=== PATIENT | female | born 1995 | race Hispanic/Latino ===

== ENCOUNTER 2018-06-20 12:56 | Emergency (ER) | payer OTHER ==
[2018-06-20 15:06] LABS: Urine Bacteria 20-50 /HPF (<20); Urine Culture Reflex Order NOT NEEDED; Urine RBC <5 /HPF (NONE SEEN)
[2018-06-20 15:07] LABS: Urine Blood NEGATIVE (NEG); Urine Glucose NEGATIVE (NEG); Urine Protein NEGATIVE (NEG); Urine Specific Gravity 1.015 (1.005-1.030)
[2018-06-20 15:07] LABS: Absolute Lymphocytes (CBC) 1.6 K/uL (0.7-4.9); Absolute Monocytes 0.4 K/uL (0.1-1.3); Absolute Neutrophil 5.1 K/uL (1.8-8.0); Basophils % 0.3 % (0-1.3); Eosinophils % 2.6 % (0-4.4); Hematocrit 39.7 % (36.0-45.0); Lymphocytes % 21.9 % (15.3-44.8); MCH 28.8 pg (27.0-35.0); MCV 87.2 fL (80-100); MPV 10.1 fL (7.6-11.3); Monocytes % 5.4 % (3.3-12.3); RBC Red Blood Cell Count 4.56 M/uL (3.86-4.86)
[2018-06-20 15:16] LABS: Urine Specific Gravity 1.015 (1.005-1.030)
[2018-06-20 15:50] LABS: BUN Blood Urea Nitrogen 8 mg/dL (7-18); Bicarbonate 26 mmol/L (21-32); Glucose Level 81 mg/dL (74-106); HCG, Quantitative 95239 mIU/mL (1-3); Potassium 3.7 mmol/L (3.5-5.1); Sodium Level 139 mmol/L (136-145)
[2018-06-20] MEDS ORDERED: NA CHLORIDE 0.9% 1,000 ML ONE (16:17)
[2018-06-20] MEDS ORDERED: CEFTRIAXONE/SWI 1gm 1 GM/10 ML SYR ONE (16:17)
--- NOTE | 2018-06-20 16:37 | RAD REPORT ---
EXAM DESCRIPTION: US - Transvaginal OB - 06/20/2018 4:27 pm CLINICAL HISTORY: ABD CRAMPING, <Reason For Exam>ABD CRAMPING, COMPARISON: No comparisons<Comparisons>No comparisons FINDINGS: Intrauterine gestational sac is identified. [place]-rump length corresponds to 9 weeks 1 day age. Heart rate is 167 BPM. No hematoma, mass or other intrauterine abnormality. Cervical canal is c losed. Right ovary is identified with normal intra stroma blood flow pattern. No dominant solid or cystic ov benny or adnexal finding. Left ovary was not identifiable. No left adnexal mass. No blood or fluid in the cul-de-sac. IMPRESSION: Single 9 week 1 day IUP with good heart rate. Calculated MAGNUS is 01/22/2019. No hematoma, mass or uterine abnormality. Cervical canal is closed. Normal right ovary with nonvisualization of the left ovary. No adnexal abnormalities.
[2018-06-20 16:53] LABS: Albumin 3.7 g/dL (3.4-5.0); Bilirubin Direct 0.1 mg/dL (0-0.2); Bilirubin Total 0.3 mg/dL (0.2-1.0); Protein, Total 7.3 g/dL (6.4-8.2)
--- NOTE | 2018-06-20 16:59 | ER ---
Nurse's Notes [facility] Name: Celi Yu Age: 23 yrs Sex: Female : 1995 Arrival Date: 06/20/2018 Time: 13:00 Bed 30 Private MD: None, None Diagnosis: Urinary tract infection, site not specified;Dysuria; related conditions, unspecified, first trimester Presentation: 06/20 13:12 Presenting complaint: Patient states: I was hit by a falling couch on Tuesday, no issues ch till this morning when I started getting abdominal pains all over equally. LMP was 04/11/18, . Transition of care: patient was not received from another setting of care. Onset of symptoms was June 20, 2018 at 07:00. Risk Assessment: Do you want to hurt yourself or someone else? Patient reports no desire to harm self or others. Initial Sepsis Screen: Does the patient meet any 2 criteria? No. Patient's initial sepsis screen is negative. Does the patient have a suspected source of infection? No. Patient's initial sepsis screen is negative. Care prior to arrival: None. 13:12 Method Of Arrival: Ambulatory 13:12 Acuity: COURTNEY 3 ch Triage Assessment: 13:13 General: Appears in no apparent distress. comfortable, Behavior is calm, cooperative, ch appropriate for age. Pain: Complains of pain in abdomen Pain currently is 7 out of 10 on a pain scale. GI: Reports lower abdominal pain, upper abdominal pain. 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 - Social history:: Smoking status: Patient/guardian denies using tobacco, Patient/guardian denies using alcohol, street drugs. - Ebola Screening: : Patient negative for fever greater than or equal to 101.5 degrees Fahrenheit, and additional compatible Ebola Virus Disease symptoms Patient denies exposure to infectious person Patient denies travel to an Ebola-affected area in the 21 days before illness onset No symptoms or risks identified at this time. - Family history:: not pertinent. Screenin:02 Abuse screen: Denies threats or abuse. Denies injuries from another. Nutritional kr2 screening: No deficits noted. Tuberculosis screening: No symptoms or risk factors identified. Fall Risk None identified. Assessment: 14:58 Reassessment: Patient appears in no apparent distress at this time. No changes from ch previously documented assessment. Patient and/or family updated on plan of care and expected duration. Pain level reassessed. 15:59 General: Appears in no apparent distress. comfortable, well groomed, well developed, kr2 well nourished, Behavior is calm, cooperative, appropriate for age. Pain: Complains of pain in abdomen Pain radiates to suprapubic area Pain currently is 7 out of 10 on a pain scale. Quality of pain is described as aching, dull, Is continuous, Alleviated by nothing. Neuro: Level of Consciousness is awake, alert, obeys commands, Oriented to person, place, time, situation, Appropriate for age. Cardiovascular: Capillary refill < 3 seconds in bilateral fingers Patient's skin is warm and dry. Respiratory: Airway is patent Respiratory effort is even, unlabored, Respiratory pattern is regular, symmetrical. GI: Abdomen is flat, non-distended, Bowel sounds present X 4 quads. Abd is soft X 4 quads. : Reports pain in suprapubic area Denies burning with urination. EENT: Oral mucosa is moist. Derm: Skin is intact, is healthy with good turgor, Skin is pink, warm \T\ dry. Musculoskeletal: Circulation, motion, and sensation intact. 17:00 Reassessment: Patient appears in no apparent distress at this time. Patient and/or kr2 family updated on plan of care and expected duration. Pain level reassessed. Patient is alert, oriented x 3, equal unlabored respirations, skin warm/dry/pink. 17:50 Reassessment: Patient appears in no apparent distress at this time. Patient and/or kr2 family updated on plan of care and expected duration. Pain level reassessed. Patient is alert, oriented x 3, equal unlabored respirations, skin warm/dry/pink. Patient states feeling better. Vital Signs: 13:13 BP 113 / 67; Pulse 83; Resp 18; Temp 97.8; Pulse Ox 99% on R/A; Weight 55.79 kg; Height 4 ft. 11 in. (149.86 cm); Pain 6/10; 14:58 BP 106 / 62; Pulse 65; Resp 14; Temp 98.3; Pulse Ox 99% on R/A; Pain 6/10; ch 17:51 BP 114 / 68; Pulse 66; Resp 17; Pulse Ox 98% ; kr2 13:13 Body Mass Index 24.84 (55.79 kg, 149.86 cm) ED Course: 13:00 Patient arrived in ED. mr 13:01 None, None is Private Physician. mr 13:13 Triage completed. 13:13 Arm band placed on left wrist. Patient placed in waiting room. 14:58 Initial lab(s) drawn, by me, sent to lab. 15:29 Urine collected: clean catch specimen. 15:56 Manoj Thurman MD is Attending Physician. estela 15:59 Omayra Stephen, CLAUDY is Primary Nurse. kr2 16:02 Patient has correct armband on for positive identification. Bed in low position. Call kr2 light in reach. Side rails up X 1. Pulse ox on. NIBP on. Door closed. Warm blanket given. Pillow given. Head of bed elevated. 16:28 US Transvaginal Ob In Process Unspecified. EDMS 16:40 Inserted saline lock: 20 gauge in right antecubital area, using aseptic technique. kr2 Blood collected. 16:59 Mireya Restrepo MD is Referral Physician. estela 17:51 No provider procedures requiring assistance completed. IV discontinued, intact, kr2 bleeding controlled, No redness/swelling at site. Pressure dressing applied. Administered Medications: 16:44 Drug: NS 0.9% 1000 ml Route: IV; Rate: 1 bolus; Site: right antecubital; kr2 17:45 Follow up: Response: No adverse reaction; IV Status: Completed infusion kr2 16:44 Drug: Rocephin - (cefTRIAXone) 1 grams Route: IVPB; Infused Over: 30 mins; Site: right kr2 antecubital; 17:30 Follow up: Response: No adverse reaction; IV Status: Completed infusion kr2 17:45 Follow up: Response: No adverse reaction; IV Status: Completed infusion kr2 17:23 Drug: Nitrofurantoin 100 mg Route: PO; kr2 17:30 Follow up: Response: Medication administered at discharge. kr2 17:44 Follow up: Response: No adverse reaction kr2 Outcome: 16:59 Discharge ordered by . estela 17:51 Discharged to home ambulatory, with family. kr2 17:51 Condition: good 17:51 Discharge instructions given to patient, Instructed on discharge instructions, follow up and referral plans. medication usage, Demonstrated understanding of instructions, follow-up care, medications, Prescriptions given X 2. 17:51 Patient left the ED. kr2 Addendum: 06/23/2018 11:23 Addendum: Culture Results: Positive urine culture. Bacteria is resistant to, has s s intermediate sensitivity, or is not tested against prescribed antibiotics. Report given to TOMASA for further evaluation and then to title closer for follow up with patient. Phone call Attempt #1 No answer, Left VM. Certified letter sent to listed address for patient. Signatures: Dispatcher [employer] EDMS May Richardson RN RN ch Anderson, Corey, MD MD cha Rivera, Maria mr Leatha Strickland RN RN ss Reaves, Karey, RN RN kr2
--- NOTE | 2018-06-20 16:59 | EDPHYS ---
Physician Documentation [facility] Name: Celi Yu Age: 23 yrs Sex: Female : 1995 Arrival Date: 06/20/2018 Time: 13:00 Bed 30 Private MD: None, None ED Physician Manoj Thurman HPI: 06/20 16:36 This 23 yrs old Female presents to ER via Ambulatory with complaints of estela Abdominal Pain, 9 wks . 16:36 The patient presents with abdominal pain in the lower abdomen, abdominal distention in estela the lower abdomen. Onset: The symptoms/episode began/occurred 2 day(s) ago. The patient presents with urinary symptoms, dysuria, frequency. Onset: The symptoms/episode began/occurred 2 day(s) ago. Modifying factors: The symptoms are alleviated by nothing, the symptoms are aggravated by nothing. Associated signs and symptoms: The patient has no apparent associated signs or symptoms, Pertinent positives: dysuria. Severity of symptoms: At their worst the symptoms were mild, in the emergency department the symptoms are unchanged. 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 - Social history:: Smoking status: Patient/guardian denies using tobacco, Patient/guardian denies using alcohol, street drugs. - Ebola Screening: : Patient negative for fever greater than or equal to 101.5 degrees Fahrenheit, and additional compatible Ebola Virus Disease symptoms Patient denies exposure to infectious person Patient denies travel to an Ebola-affected area in the 21 days before illness onset No symptoms or risks identified at this time. - Family history:: not pertinent. ROS: 16:36 Constitutional: Negative for fever, chills, and weight loss, Eyes: Negative for injury, estela pain, redness, and discharge, ENT: Negative for injury, pain, and discharge, Neck: Negative for injury, pain, and swelling, Cardiovascular: Negative for chest pain, palpitations, and edema, Respiratory: Negative for shortness of breath, cough, wheezing, and pleuritic chest pain, Back: Negative for injury and pain, MS/Extremity: Negative for injury and deformity, Skin: Negative for injury, rash, and discoloration, Neuro: Negative for headache, weakness, numbness, tingling, and seizure, Psych: Negative for depression, anxiety, suicide ideation, homicidal ideation, and hallucinations, Allergy/Immunology: Negative for hives, rash, and allergies, Endocrine: Negative for neck swelling, polydipsia, polyuria, polyphagia, and marked weight changes, Hematologic/Lymphatic: Negative for swollen nodes, abnormal bleeding, and unusual bruising. 16:36 Abdomen/GI: Positive for abdominal pain. 16:36 : Positive for urinary symptoms, urinary frequency, small amounts, burning with urination. Exam: 16:36 Constitutional: This is a well developed, well nourished patient who is awake, alert, estela and in no acute distress. Head/Face: Normocephalic, atraumatic. Eyes: Pupils equal round and reactive to light, extra-ocular motions intact. Lids and lashes normal. Conjunctiva and sclera are non-icteric and not injected. Cornea within normal limits. Periorbital areas with no swelling, redness, or edema. ENT: Nares patent. No nasal discharge, no septal abnormalities noted. Tympanic membranes are normal and external auditory canals are clear. Oropharynx with no redness, swelling, or masses, exudates, or evidence of obstruction, uvula midline. Mucous membranes moist. Neck: Trachea midline, no thyromegaly or masses palpated, and no cervical lymphadenopathy. Supple, full range of motion without nuchal rigidity, or vertebral point tenderness. No Meningismus. Chest/axilla: Normal chest wall appearance and motion. Nontender with no deformity. No lesions are appreciated. Cardiovascular: Regular rate and rhythm with a normal S1 and S2. No gallops, murmurs, or rubs. Normal PMI, no JVD. No pulse deficits. Respiratory: Lungs have equal breath sounds bilaterally, clear to auscultation and percussion. No rales, rhonchi or wheezes noted. No increased work of breathing, no retractions or nasal flaring. Back: No spinal tenderness. No costovertebral tenderness. Full range of motion. Female : Normal external genitalia. Skin: Warm, dry with normal turgor. Normal color with no rashes, no lesions, and no evidence of cellulitis. MS/ Extremity: Pulses equal, no cyanosis. Neurovascular intact. Full, normal range of motion. Neuro: Awake and alert, GCS 15, oriented to person, place, time, and situation. Cranial nerves II-XII grossly intact. Motor strength 5/5 in all extremities. Sensory grossly intact. Cerebellar exam normal. Normal gait. 16:36 Abdomen/GI: Inspection: distension, that is mild, in the right lower quadrant and left lower quadrant, Bowel sounds: normal, Palpation: mild abdominal tenderness, in the suprapubic area, right lower quadrant and left lower quadrant, Liver: no appreciated palpable abnormalities, Hernia: not appreciated. Vital Signs: 13:13 BP 113 / 67; Pulse 83; Resp 18; Temp 97.8; Pulse Ox 99% on R/A; Weight 55.79 kg; Height ch 4 ft. 11 in. (149.86 cm); Pain 6/10; 14:58 BP 106 / 62; Pulse 65; Resp 14; Temp 98.3; Pulse Ox 99% on R/A; Pain 6/10; ch 17:51 BP 114 / 68; Pulse 66; Resp 17; Pulse Ox 98% ; kr2 13:13 Body Mass Index 24.84 (55.79 kg, 149.86 cm) ch MDM: 15:56 Patient medically screened. [facility] 16:38 Data reviewed: vital signs, nurses notes, lab test result(s), radiologic studies, estela ultrasound. 06/20 13:19 [facility] name[facility] 13:19 Order name: Urine Microscopic Only; Complete [facility]: [facility] 06[facility] 14:38 Order name: Quantitative Hcg; Complete Time: 16: [facility] 06/20 14:38 Order name: Abo/rh Typing [facility] 06/20 14:38 Order name: Basic Metabolic Panel; Complete Time: 16: [facility] 06/20 14:38 Order name: CBC with Diff; Complete Time: 16: [facility] 06/20 14:58 Order name: Urine Dipstick--Ancillary (enter results); Complete Time: 16: 06/20 15:11 Order name: Urine --Ancillary (enter results); Complete Time: 16: 06/20 16:03 Order name: US Transvaginal Ob; Complete Time: 16:58 estela 06/20 16:03 Order name: LFT's; Complete Time: 16:58 estela 06/20 16:03 Order name: Lipase; Complete Time: 16:58 estela 06/20 13:19 Order name: Urine Test (obtain specimen); Complete Time: 15:53 snw 06/20 13:19 Order name: Urine Dipstick-Ancillary (obtain specimen); Complete Time: 15:53 snw 06/20 14:38 Order name: IV Saline Lock; Complete Time: 16:58 kdr 06/20 14:38 Order name: Labs collected and sent; Complete Time: 15:53 kdr 06/20 14:38 Order name: NPO; Complete Time: 15:53 kdr Administered Medications: 16:44 Drug: NS 0.9% 1000 ml Route: IV; Rate: 1 bolus; Site: right antecubital; kr2 17:45 Follow up: Response: No adverse reaction; IV Status: Completed infusion kr2 16:44 Drug: Rocephin - (cefTRIAXone) 1 grams Route: IVPB; Infused Over: 30 mins; Site: right kr2 antecubital; 17:30 Follow up: Response: No adverse reaction; IV Status: Completed infusion kr2 17:45 Follow up: Response: No adverse reaction; IV Status: Completed infusion kr2 17:23 Drug: Nitrofurantoin 100 mg Route: PO; kr2 17:30 Follow up: Response: Medication administered at discharge. kr2 17:44 Follow up: Response: No adverse reaction kr2 Disposition: 06/20/18 16:59 Discharged to Home. Impression: Urinary tract infection, site not specified, Dysuria, related conditions, unspecified, first trimester. - Condition is Stable. - Discharge Instructions: Abdominal Pain During , Dysuria, Urinary Tract Infection, Adult, First Trimester of , [id number], First Trimester of , Abdominal Pain During , [id number], Pelvic Rest. - Prescriptions for Vitamin 27- 0.8 mg Oral Tablet - take 1 tablet by ORAL route once daily; 30 tablet. Macrobid 100 mg Oral Capsule - take 1 capsule by ORAL route every 12 hours for 7 days; 14 capsule. - Medication Reconciliation Form, Thank You Letter, Antibiotic Education, Prescription Opioid Use, Work release form form. - Follow up: Private Physician; When: 2 - 3 days; Reason: Recheck today's complaints, Continuance of care, Re-evaluation by your physician. Follow up: Mireya Restrepo; When: 2 - 3 days; Reason: Recheck today's complaints, Re-evaluation by your physician. - Problem is new. - Symptoms have improved. Signatures: Dispatcher [employer] EDMS May Richardson, CLAUDY RN Manoj Berg MD MD cha Rittger, Kevin, MD MD kdr Therrien, Shelly, ACCOUNT ASSOCIATE-C ACCOUNT ASSOCIATE-Csnw Omayra Stephen RN RN kr2 Corrections: (The following items were deleted from the chart) 17:51 16:59 06/20/2018 16:59 Discharged to Home. Impression: Urinary tract infection, site kr2 not specified; Dysuria; related conditions, unspecified, first trimester. Condition is Stable. Discharge Instructions: Abdominal Pain During , Dysuria, Urinary Tract Infection, Adult, First Trimester of , [id number], First Trimester of , Abdominal Pain During , [id number], Pelvic Rest. Prescriptions for Vitamin 27-0.8 mg Oral Tablet - take 1 tablet by ORAL route once daily; 30 tablet, Macrobid 100 mg Oral Capsule - take 1 capsule by ORAL route every 12 hours for 7 days; 14 capsule. and Forms are Medication Reconciliation Form, Thank You Letter, Antibiotic Education, Prescription Opioid Use. Follow up: Private Physician; When: 2 - 3 days; Reason: Recheck today's complaints, Continuance of care, Re-evaluation by your physician. Follow up: Mireya Restrepo; When: 2 - 3 days; Reason: Recheck today's complaints, Re-evaluation by your physician. Problem is new. Symptoms have improved. estela
[2018-06-20] MEDS ORDERED: NITROFURAN MACRO 100 MG CAP PO ONE (17:25)
== END 2018-06-20 17:51 | disposition home or self-care (01) ==
LOC: ER 12:56
DX: O23.41 Unspecified infection of urinary tract in pregnancy, first trimester (principal); Z3A.09 9 weeks gestation of pregnancy
CPT/HCPCS: 36415; 76817; 80048; 80076; 81003; 81015; 81025; 83690; 84702; 85025; 86900; 86901; 87077; 87086; 87088; 87186; 96365; 99284; J0696; J7030

== ENCOUNTER 2022-01-25 19:19 | Emergency (ER) | payer OTHER ==
--- OUTSIDE RECORDS SUMMARY | 2022-01-25 19:23 | XMS REPORT | Continuity of Care Document ---
:1995 Author Organization [facility] t Address [address] [place] [address] Care Team Providers Name Role Phone Anneliese Torres Primary Care Physician Pradeep Roemro Attending Clinician Ne Torres Attending Clinician Doctor Unassigned, Name Attending Clinician Unavailable Payers Payer Name Policy Type Policy Number Effective Date Expiration Date S ource Advance Directives Directive Decision Effective Termination Comments Source Date Date Healthcare Agents on N/A [facility] Medical RelationshipCommunicationTerK[facility] RamosMotherHealth Care [phone] (Mobile)Speedy Finley PartnerFirst [facility]ate [facility] [phone] (Mobile) Delicia LeonibVijayecond [facility] [phone] (Mobile) Problems Condition Condition Condition Status Onset Resolution Last Treating Co mments Source Name Details Category Date Date Treatment Clinician Date Obesity in Obesity in Disease Active U nivers 2-14 ity of 00:00: [address] BMI BMI Disease Active Univers 31.0-31.9, 31.0-31.9, 2-14 it y of adult adult 00:00: [place] 00 [facility] Injury of Injury of Disease Active Uni vers low back, low back, 2-14 ity of initial initial 00:00: [place] encounter encounter [address] [facility] Acute Acute Disease Active Univers bilateral bilateral 2-14 ity of low back low back 00:00: [place] pain, pain, 00 Medical unspecifie unspecifie Br anch d whether d whether sciatica sciatica present present Other Other Disease Active Univers general general 9-09 ity of counseling [place] and advice 00 Me dical for for Branch contracept contracept saulo saulo management management Herpes Herpes Disease Active Univers genitalia genitalia 8-19 ity of 00:00: [place] 00 [facility] Susceptibl Susceptibl Disease Active Overview : Univers e to e to 2-19 Formattin ity of varicella varicella 00:00: [place] of [place] (non-immun (non-immun 00 note Me dical e), e), might be Branch currently currently different from the original. Address pp Multiparit Multiparit Disease Active U nivers y y 2-17 ity of 00:00: [place] 00 [facility] Over Over Disease Active Univers weight weight 2-17 ity of 00:00: [place] 00 [facility] Unspecifie Unspecifie Disease Active U nivers d d 8-21 ity of high-risk high-risk 00:00: Ch[place] s [facility] Allergies, Adverse Reactions, Alerts This patient has no known allergies or adverse reactions. Social History Social Habit Start Date Stop Date Quantity Comments Source ASSERTION 2021-10-21 University of 00:00:00 [facility] Exposure to Not sure University of SARS-CoV-2 [facility] (event) Branch Alcohol intake 2022-01-04 2022-01-04 Current University of 00:00:00 00:00:00 non-drinker of [facility] alcohol [place] (finding) Tobacco use and 2018-06-13 2018-06-13 Never used Universit y of exposure 00:00:00 00:00:00 [facility] Sex Assigned At [birth year] Universit y of 00:00:00 00:00:00 [facility] Smoking Status Start Date Stop Date Source Never smoker [facility] Medications Ordered Filled Start Stop Current Ordering Indication Dosage Frequency Signature Comments Components Source Medication Medication Date Date Medication? Clinician (SIG) Name Name Yes [id number] 1{packe Take 1 Univers vit 2-14 t} Packet by ity of 33-iron-fol 00:00: mouth [place] ic-dha 00 daily. Medical (SELECT-OB Branch + DHA) 29 mg iron-1 mg -250 mg combo pack levonorgest Yes [id number] 1{tbl} Take 1 Univers rel-ethinyl 9-24 tablet by ity of estradiol 00:00: mouth [place] 0.1-20 00 daily. Medical mg-mcg per Branch tablet Immunizations Ordered Filled Immunization Date Status Comments Sourc e Immunization Name Name HPV9 2020-12-31 Completed University of 00:00:00 [facility] HPV9 2020-09-02 Completed University of 00:00:00 [facility] HPV9 2020-07-02 Completed University of 00:00:00 [facility] TDAP 2020-03-11 Completed University of 00:00:00 [facility] MMR 2019-01-18 Completed University of 00:00:00 [facility] TDAP 2018-11-06 Completed University of 00:00:00 [facility] Influenza Virus 2018-11-06 Completed [facility] y of Vaccine Quad .5 mL 00:00:00 [facility] 6+ MO Branch Vital Signs Vital Name Observation Time Observation Value Comments Source Systolic blood 2022-01-04 15:49:00 112 mm[Hg] Univer sity of pressure [facility] Diastolic blood 2022-01-04 15:49:00 72 mm[Hg] Unive rsity of pressure [facility] Heart rate 2022-01-04 15:49:00 92 /min [facility] Body temperature 2022-01-04 15:49:00 36.22 [facility] Respiratory rate 2022-01-04 15:49:00 16 /min [facility] Body height 2022-01-04 15:49:00 154.9 cm [facility] Body weight 2022-01-04 15:49:00 74.526 kg [facility] BMI 2022-01-04 15:49:00 31.04 kg/m2 [facility] Procedures Procedure Date / Time Performed Performing Clinician Toñito manzano POCT URINALYSIS 2022-01-04 15:50:00 Salina Hoffman [facility] Encounters Start End Encounter Admission Attending Care Care Encounter Source Date/Time Date/Time Type Type Clinicians Facility Department ID 2022-01-04 2022-01-04 Routine Dalton [facility] [id number] Univers 10:15:00 11:10:46 Salina Fernández [employer] WORKER [id number] ity of Visit REGIONAL [id number] Alfie as MATERNAL [id number] Med ical & CHILD [address] [place] [address] 2020-05-12 2020-05-12 Routine [place], [facility] [id number] 12:56:49 13:33:00 Anneliese C [employer]ASS WORKER [id number] Visit REGIONAL [id number] MATERNAL [id number] & CHILD 107 [facility] 2020-05-05 2020-05-05 Routine [place], [facility] [id number] 13:57:07 14:42:52 Anneliese C [employer]ASS WORKER [id number] Visit REGIONAL [id number] MATERNAL [id number] & CHILD 107 [facility] 2020-04-21 2020-04-21 Routine [place], [facility] [id number] 13:53:28 14:19:53 Anneliese C [employer]ASS WORKER [id number] Visit REGIONAL [id number] MATERNAL [id number] & CHILD 107 [facility] 2020-04-08 2020-04-08 Patient Doctor [facility] [id number] 00:00:00 00:00:00 Secure Msg Unassigned, [employer] [id number] [place] REGIONAL [id number] MATERNAL [id number] & CHILD 107 [facility] 2020-04-07 2020-04-07 Routine [place], [facility] [id number] 15:42:52 15:57:52 Anneliese C [employer]ASS WORKER [id number] Visit REGIONAL [id number] MATERNAL [id number] & CHILD 107 [facility] 2020-03-18 2020-03-18 Patient Doctor [facility] [id number] 00:00:00 00:00:00 Secure Msg Unassigned, [employer]ASS WORKER [id number] [place] REGIONAL [id number] MATERNAL [id number] & CHILD 107 [facility] 2020-03-11 2020-03-11 Routine [place], [facility] [id number] 10:23:00 11:14:24 Anneliese C [employer]ASS WORKER [id number] Visit REGIONAL [id number] MATERNAL [id number] & CHILD 107 [facility] 2020-02-26 2020-02-26 Routine [place], [facility] [id number] 08:13:35 09:28:07 Anneliese C [employer]ASS WORKER [id number] Visit REGIONAL [id number] MATERNAL [id number] & CHILD 107 [facility] Results Test Description Test Time Test Comments Results Result Comments Source POCT URINALYSIS W SPECIFIC GRAVITY 2022-01-04 15:50:00 Test Item Value Reference Range Interpretation Comme nts POCT U SP GRAV (test code = 3255) . 1.005-1.025 POCT PH U (test code = 3254) . 5-8 POCT U LEUK EST (test code = 3263) . Negative - Negative POCT U NIT (test code = 3262) . Negative - Negative POCT U PROT (test code = 3259) 1+ Negative - Negative POCT U GLU (test code = 3256) neg Negative - Negative POCT U KETONE (test code = 3258) . Negative - Negative POCT U UROBILI (test code = 5910) . 0.2-1 POCT U BILI (test code = 3261) . Negative - Negative POCT U BLD (test code = 3257) . Negative - Negative POCT U COLOR (test code = 3266) POCT U APPEAR (test code = 3267) [facility]
[2022-01-25 20:50] LABS: Urine Blood Negative (Negative); Urine Glucose Negative (Negative); Urine Protein Negative (Negative); Urine Specific Gravity 1.025 (1.005-1.030)
[2022-01-25 22:03] LABS: Urine Specific Gravity/Preg 1.025 (1.005-1.030)
[2022-01-25 22:13] LABS: Urine Bacteria <20 /HPF (<20); Urine RBC <5 /HPF (NONE SEEN)
[2022-01-25] MEDS ORDERED: CEFTRIAXONE 1000 MG/VIAL ONE (22:34)
[2022-01-25] MEDS ORDERED: NA CHLORIDE 0.9% 50 ML ONE (22:34)
[2022-01-25 22:40] LABS: Hematocrit 37.7 % (36.0-45.0); Lymphocytes % 16.1 % (15.3-44.8); MPV 9.7 fL (7.6-11.3); RBC Red Blood Cell Count 4.43 M/uL (3.86-4.86)
[2022-01-25 22:51] LABS: ALT/SGPT 15 U/L (12-78); AST/SGOT 16 U/L (15-37); Albumin 3.3 g/dL (3.4-5.0); Alkaline Phosphatase 62 U/L (45-117); BUN Blood Urea Nitrogen 5 mg/dL (7-18); Bicarbonate 24 mmol/L (21-32); Bilirubin Total 0.3 mg/dL (0.2-1.0); Glucose Level 92 mg/dL (74-106); Lipase 82 U/L (73-393); Potassium 3.4 mmol/L (3.5-5.1); Sodium Level 138 mmol/L (136-145)
[2022-01-25] MEDS ORDERED: NA CHLORIDE 0.9% 1,000 ML ONE (22:53)
--- NOTE | 2022-01-26 00:53 | ER ---
Nurse's Notes [facility] Name: Celi Yu Age: 26 yrs Sex: Female : 1995 Arrival Date: 01/25/2022 Time: 19:24 Bed 17 Private MD: Diagnosis: Abdominal pain, Generalized;15 weeks gestation of ;UTI/ Urinary tract infection, site not specified;Elevated white blood cell count Presentation: 01/25 20:06 Chief complaint: Patient states: "An hour ago, I started getting really bad pain on the lp1 right side of my stomach and it went to my back"; Reports sharp pain; Denies vaginal bleeding or discharge. 20:08 Coronavirus screen: At this time, the client does not indicate any symptoms associated lp1 with coronavirus-19. Ebola Screen: No symptoms or risks identified at this time. Risk Assessment: Do you want to hurt yourself or someone else? Patient reports no desire to harm self or others. Onset of symptoms was January 25, 2022. 20:08 Method Of Arrival: Wheelchair lp1 20:08 Acuity: COURTNEY 3 lp1 20:11 Initial Sepsis Screen: Does the patient meet any 2 criteria? No. Patient's initial lp1 sepsis screen is negative. Does the patient have a suspected source of infection? No. Patient's initial sepsis screen is negative. 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 - Social history:: Smoking status: Patient denies any tobacco usage or history of. - Family history:: not pertinent. Screenin:08 Abuse screen: Denies threats or abuse. Denies injuries from another. Nutritional lp1 screening: No deficits noted. Tuberculosis screening: No symptoms or risk factors identified. Fall Risk None identified. Assessment: 22:55 General: Appears in no apparent distress. Behavior is appropriate for age. Pain: sm5 Complains of pain in left lower quadrant and right lower quadrant and left upper quadrant and right upper quadrant. Neuro: No deficits noted. Level of Consciousness is awake, alert, obeys commands, Oriented to person, place, time, situation. Cardiovascular: No deficits noted. Capillary refill < 3 seconds Patient's skin is warm and dry. Respiratory: No deficits noted. Airway is patent Trachea midline Respiratory effort is even, unlabored. GI: Abdomen is round Bowel sounds present X 4 quads. Abdomen is tender to palpation. 01/26 00:10 Reassessment: No changes from previously documented assessment. Patient and/or family sm5 updated on plan of care and expected duration. Pain level reassessed. 01:45 Reassessment: No changes from previously documented assessment. sm5 02:58 Reassessment: No changes from previously documented assessment. Patient and/or family sm5 updated on plan of care and expected duration. Pain level reassessed. 04:27 Reassessment: No changes from previously documented assessment. pt asleep. sm5 05:45 Reassessment: No changes from previously documented assessment. 5 Vital Signs: 01/25 20:09 BP 115 / 70; Pulse 88; Resp 18; Temp 99.1(O); Pulse Ox 99% on R/A; Weight 74.84 kg; lp1 Height 5 ft. 1 in. (154.94 cm); Pain 7/10; 01/26 02:38 BP 113 / 74; Pulse 107; Resp 17; Temp 99.3(O); Pulse Ox 100% ; lp1 01/25 20:09 Body Mass Index 31.18 (74.84 kg, 154.94 cm) lp1 ED Course: 01/25 19:24 Patient arrived in ED. kz 20:08 Triage completed. lp1 20:08 Arm band placed on. lp1 22:03 Guera Walters RN is Primary Nurse. sm5 22:13 Manoj Thurman MD is Attending Physician. [facility] 22:27 Inserted saline lock: 20 gauge in right antecubital area, using aseptic technique. sm5 Blood collected. 22:33 Urine Culture Sent. sm5 22:33 Urine Culture Sent. sm5 22:56 Patient has correct armband on for positive identification. Placed in gown. Bed in low sm5 position. Call light in reach. Side rails up X2. 01/26 00:10 US OB Limited In Process Unspecified. EDMS 00:10 US Rp Exam Limited In Process Unspecified. EDMS 00:51 Tad Palma MD is Referral Physician. estela 01:05 initiated a transfer with Adrienne from [facility]. 2 01:54 administrative approval given by Adrienne Andrew/ patient has been accepted to [address] to the ER/ Dr. Jenkins accepted the patient in transfer/ report to be called to [phone]. 06:05 No provider procedures requiring assistance completed. Patient transferred, IV remains sm5 in place. Administered Medications: 01/25 22:54 Drug: NS 0.9% 1000 ml Route: IV; Rate: 1 bolus; Site: right antecubital; sm5 23:48 Follow up: IV Status: Completed infusion; IV Intake: 1000ml sm5 22:54 Drug: Rocephin (cefTRIAXone) 1 grams Route: IV; Rate: per protocol; Site: right sm5 antecubital; 23:05 Follow up: IV Status: Completed infusion; IV Intake: 50ml sm5 01/26 01:50 Drug: morphine 2 mg Route: IVP; Site: right antecubital; sm5 02:43 Follow up: Response: Pain is decreased lp1 01:50 Drug: Zofran (Ondansetron) 4 mg Route: IVP; Site: right antecubital; sm5 02:44 Follow up: Response: Nausea is decreased lp1 01:51 Drug: Potassium Effervescent Tablet 25 mEq Route: PO; sm5 02:43 Follow up: Response: No adverse reaction lp1 Intake: 01/25 23:05 IV: 50ml; Total: 50ml. sm5 23:48 IV: 1000ml; Total: 1050ml. sm5 Outcome: 01/26 00:52 Discharge ordered by . estela 01:14 ER care complete, transfer ordered by . estela 06:05 Transferred by ground EMS to [facility], Transfer form sm5 completed. X-rays sent w/ patient. 06:05 Condition: stable 06:05 Instructed on the need for transfer. 06:06 Patient left the ED. sm5 Signatures: Dispatcher [employer] Mnaoj Stewart MD MD estela Willoughby, Nay, RN RN lp1 Ulises Waller mw2 Guera Walters, RN RN sm5 Bernice Snyder Corrections: (The following items were deleted from the chart) 01:37 01:05 initiated a transfer [facility] mw2 mw2
--- NOTE | 2022-01-26 00:53 | EDPHYS ---
Physician Documentation [facility] Name: Celi Yu Age: 26 yrs Sex: Female : 1995 Arrival Date: 01/25/2022 Time: 19:24 Bed 17 Private MD: ED Physician Manoj Thurman HPI: 01/25 22:26 This 26 yrs old Female presents to ER via Wheelchair with complaints of estela Abdominal Pain - 15 weeks . 22:26 The patient presents with abdominal pain right lower quadrant, that is diffuse. Onset: estela The symptoms/episode began/occurred 3 hour(s) ago. The patient presents to the emergency department with abdominal pain, of the right upper quadrant, left upper quadrant, right lower quadrant and left lower quadrant. The estimated gestational age is 15 weeks. course: care: at a clinic. Previous pregnancies: in previous pregnancies patient has had vaginal delivery. Associated signs and symptoms: The patient has no apparent associated signs or symptoms. The symptoms do not radiate. The symptoms are described as crampy. 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 - Social history:: Smoking status: Patient denies any tobacco usage or history of. - Family history:: not pertinent. ROS: 22:26 Constitutional: Negative for fever, chills, and weight loss, Eyes: Negative for injury, estela pain, redness, and discharge, ENT: Negative for injury, pain, and discharge, Neck: Negative for injury, pain, and swelling, Cardiovascular: Negative for chest pain, palpitations, and edema, Respiratory: Negative for shortness of breath, cough, wheezing, and pleuritic chest pain, Back: Negative for injury and pain, : Negative for injury, bleeding, discharge, and swelling, MS/Extremity: Negative for injury and deformity, Skin: Negative for injury, rash, and discoloration, Neuro: Negative for headache, weakness, numbness, tingling, and seizure, Psych: Negative for depression, anxiety, suicide ideation, homicidal ideation, and hallucinations, Allergy/Immunology: Negative for hives, rash, and allergies, Endocrine: Negative for neck swelling, polydipsia, polyuria, polyphagia, and marked weight changes, Hematologic/Lymphatic: Negative for swollen nodes, abnormal bleeding, and unusual bruising. 22:26 Abdomen/GI: Positive for abdominal pain, nausea and vomiting, abdominal distension, of the right upper quadrant, left upper quadrant, right lower quadrant and left lower quadrant. Exam: 22:26 Constitutional: This is a well developed, well nourished patient who is awake, alert, estela and in no acute distress. Head/Face: Normocephalic, atraumatic. Eyes: Pupils equal round and reactive to light, extra-ocular motions intact. Lids and lashes normal. Conjunctiva and sclera are non-icteric and not injected. Cornea within normal limits. Periorbital areas with no swelling, redness, or edema. ENT: Nares patent. No nasal discharge, no septal abnormalities noted. Tympanic membranes are normal and external auditory canals are clear. Oropharynx with no redness, swelling, or masses, exudates, or evidence of obstruction, uvula midline. Mucous membranes moist. Neck: Trachea midline, no thyromegaly or masses palpated, and no cervical lymphadenopathy. Supple, full range of motion without nuchal rigidity, or vertebral point tenderness. No Meningismus. Chest/axilla: Normal chest wall appearance and motion. Nontender with no deformity. No lesions are appreciated. Cardiovascular: Regular rate and rhythm with a normal S1 and S2. No gallops, murmurs, or rubs. Normal PMI, no JVD. No pulse deficits. Respiratory: Lungs have equal breath sounds bilaterally, clear to auscultation and percussion. No rales, rhonchi or wheezes noted. No increased work of breathing, no retractions or nasal flaring. Abdomen/GI: Soft, non-tender, with normal bowel sounds. No distension or tympany. No guarding or rebound. No evidence of tenderness throughout. Back: No spinal tenderness. No costovertebral tenderness. Full range of motion. Skin: Warm, dry with normal turgor. Normal color with no rashes, no lesions, and no evidence of cellulitis. MS/ Extremity: Pulses equal, no cyanosis. Neurovascular intact. Full, normal range of motion. Neuro: Awake and alert, GCS 15, oriented to person, place, time, and situation. Cranial nerves II-XII grossly intact. Motor strength 5/5 in all extremities. Sensory grossly intact. Cerebellar exam normal. Normal gait. Psych: Awake, alert, with orientation to person, place and time. Behavior, mood, and affect are within normal limits. Vital Signs: 20:09 BP 115 / 70; Pulse 88; Resp 18; Temp 99.1(O); Pulse Ox 99% on R/A; Weight 74.84 kg; lp1 Height 5 ft. 1 in. (154.94 cm); Pain 7/10; 01/26 02:38 BP 113 / 74; Pulse 107; Resp 17; Temp 99.3(O); Pulse Ox 100% ; lp1 01/25 20:09 Body Mass Index 31.18 (74.84 kg, 154.94 cm) lp1 MDM: 01/25 22:13 Patient medically screened. estela 22:28 Differential diagnosis: gastritis, non-specific abd pain, pancreatitis, Peritonitis, estela Pyelonephritis, Ureterolithiasis, urinary tract infection. Data reviewed: vital signs, nurses notes, lab test result(s), radiologic studies, ultrasound. Data interpreted: Pulse oximetry: is not applicable for this patient encounter. on room air 2L(s) per nasal canula, is 99 %. Arterial blood gas: is normal. Counseling: I had a detailed discussion with the patient and/or guardian regarding: the historical points, exam findings, and any diagnostic results supporting the discharge/admit diagnosis, lab results, radiology results, the need for outpatient follow up, for definitive care, an OB/Gyne specialist. 01/25 20:50 Order name: Urine Dipstick-Ancillary; Complete Time: 22:13 EDIN 01/25 20:53 Order name: Urine --Ancillary (enter results); Complete Time: 22:13 2 01/25 20:54 Order name: Urine Microscopic Only; Complete Time: 00:49 pm1 01/25 22:15 Order name: Urine Culture [facility] 01/25 22:16 Order name: CBC with Diff; Complete Time: 00:49 estela 01/25 22:16 Order name: Comprehensive Metabolic Panel; Complete Time: 00:49 estela 01/25 22:16 Order name: Lipase; Complete Time: 00:49 estela 01/25 22:16 Order name: US OB Limited [facility] 01/25 20:53 Order name: Urine Test (obtain specimen); Complete Time: 20:53 mw2 01/25 20:53 Order name: Urine Dipstick-Ancillary (obtain specimen); Complete Time: 20:53 mw2 Administered Medications: 22:54 Drug: NS 0.9% 1000 ml Route: IV; Rate: 1 bolus; Site: right antecubital; 5 23:48 Follow up: IV Status: Completed infusion; IV Intake: 1000ml 5 22:54 Drug: Rocephin (cefTRIAXone) 1 grams Route: IV; Rate: per protocol; Site: right sm5 antecubital; 23:05 Follow up: IV Status: Completed infusion; IV Intake: 50ml 5 01/26 01:50 Drug: morphine 2 mg Route: IVP; Site: right antecubital; sm5 02:43 Follow up: Response: Pain is decreased lp1 01:50 Drug: Zofran (Ondansetron) 4 mg Route: IVP; Site: right antecubital; sm5 02:44 Follow up: Response: Nausea is decreased lp1 01:51 Drug: Potassium Effervescent Tablet 25 mEq Route: PO; sm5 02:43 Follow up: Response: No adverse reaction lp1 Disposition Summary: 01/26/22 01:14 Transfer Ordered Transfer Location: [facility] estela Reason: Higher level of care estela Condition: Stable(01/26/22 01:14) setela Problem: new(01/26/22 01:14) estela Symptoms: have improved(01/26/22 01:14) estela Accepting Physician: to [facility](01/26/22 06:06) 5 Diagnosis - Abdominal pain, Generalized(01/26/22 01:14) estela - 15 weeks gestation of (01/26/22 01:14) estela - UTI/ Urinary tract infection, site not specified(01/26/22 01:14) estela - Elevated white blood cell count estela Forms: - Medication Reconciliation Form estela - SBAR form estela Signatures: Dispatcher [employer] Manoj Stewart MD MD cha Pena, Laura, RN RN lp1 Ulises Waller mw2 Guera Walters RN RN sm5 Corrections: (The following items were deleted from the chart) 01: 00:52 Home [facility] : 00:52 new [facility] : 00:52 have improved [facility] : 00:52 Stable formerly [facility] 00:52 15 weeks gestation of formerly [facility] 00:52 UTI/ Urinary tract infection, site not specified [facility] 00:52 Abdominal pain, Generalized [facility] 02:23 01:14 [facility] 06:06 02:23 to [facility] sm5
[2022-01-26] MEDS ORDERED: POTASSIUM 25 MEQ EFFERV TAB ONE (01:45)
[2022-01-26] MEDS ORDERED: MORPHINE 4 MG/ML SYR ONE (01:45)
[2022-01-26] MEDS ORDERED: ONDANSETRON 4 MG/2 ML VIAL ONE (01:45)
[2022-01-26 08:17] VITALS: BP 113/74; TEMP 99.3; O2SAT 100
--- NOTE | 2022-01-26 12:44 | RAD REPORT ---
EXAM DESCRIPTION: US - OB Limited - 01/26/2022 12:49 am CLINICAL HISTORY: ABD PAIN. Estimated gestational age by MAGNUS is 15 weeks and 5 days. COMPARISON: None. TECHNIQUE: Real-time grayscale and color Doppler images of the fetus were obtained utilizing transab dominal technique. FINDINGS: Biometry: AC: 9.3 cm (15 weeks 3 days) FL: 1.8 cm (15 weeks 3 days) Humerus length: 1.9 cm (15 weeks 3 days) heart rate: 156 bpm Subjectively normal amount of amniotic fluid. Variable presentation. Cervix is closed, measuring 3.2 cm in length. Posterior placenta with no evidence of previa. A few placental lakes are present. EGA by ultrasound: 15 weeks 3 days The maternal right ovary measures 2.8 x 1.4 x 2.1 cm (volume 4.3 mL). The maternal left ovary measure s 3.3 x 2.1 x 2.2 cm (volume 8 mL). Normal arterial flow is visualized in both ovaries. IMPRESSION: 1. Single intrauterine measuring 15 weeks and 3 days by ultrasound (MGANUS 07/16). 2. Posterior placenta with no evidence of previa. 3. Normal appearance of the ovaries. Electronically signed by: Kirstin Liu MD 01/26/2022 12:27 AM CDT Due to temporary technical issues with the PACS/Fluency reporting system, reports are being signed by the in house radiologists without review as a courtesy to insure prompt reporting. The interpreting radiologist is fully responsible for the content of the report.
--- NOTE | 2022-01-26 14:33 | RAD REPORT ---
EXAM DESCRIPTION: US - Renal Ultrasound-Complete - 01/26/2022 7:06 am CLINICAL HISTORY: 26 years Female, right;Pain COMPARISON: None. TECHNIQUE: Sonographic imaging of both kidneys was performed. FINDINGS: Right kidney measures 10.1 cm x 4.5 cm x 5 cm. Left kidney measures 10.9 cm x 5.4 cm x 4.8 cm. There is a 2 mm echogenic focus in the midpole of the right kidney which may represent small sto ne. The evidence of hydronephrosis. Echogenicity appears normal. IMPRESSION: 1. Possible tiny right renal stone. 2. No evidence of hydronephrosis. Electronically signed by: Mario Ballard MD 01/26/2022 12:40 AM CDT Due to temporary technical issues with the PACS/Fluency reporting system, reports are being signed by the in house radiologists without review as a courtesy to insure prompt reporting. The interpreting radiologist is fully responsible for the content of the report.
== END 2022-01-26 06:06 | disposition short-term general hospital (02) ==
LOC: ER 19:19
DX: O23.42 Unspecified infection of urinary tract in pregnancy, second trimester (principal); N39.0 Urinary tract infection, site not specified; D72.829 Elevated white blood cell count, unspecified; Z3A.15 15 weeks gestation of pregnancy
CPT/HCPCS: 96361; 87088; 85025; 87086; 36415; 81025; 83690; 80053; 76815; 76770; 96375; 96374; 99285; J7030; J2405; 81003; 81015